=== PATIENT | female | born 1970 | race African-American/Black ===

== ENCOUNTER 2019-08-10 13:29 | Emergency (ER) | payer OTHER ==
[2019-08-10 14:50] LABS: Urine Blood NEGATIVE (NEG); Urine Glucose NEGATIVE (NEG); Urine Protein NEGATIVE (NEG); Urine Specific Gravity 1.025 (1.005-1.030)
--- NOTE | 2019-08-10 15:13 | RAD REPORT ---
EXAM DESCRIPTION: CT - Abdomen Pelvis Wo Contrast - 08/10/2019 3:01 pm CLINICAL HISTORY: Abdominal pain COMPARISON: None TECHNIQUE: Computed axial tomography of the abdomen and pelvis was obtained. IV and oral contrast we re not requested. All CT scans are performed using dose optimization technique as appropriate and may include automated exposure control or mA/KV adjustment according to patient size. FINDINGS: The evaluation of solid organs, vessels and bowel is limited secondary to the lack of con trast administration. The liver, spleen, pancreas, adrenals and kidneys appear grossly normal. Hysterectomy. 4.2 centimeter cystic structure right adnexal. No significant free fluid. No diverticulitis Air within the vagina IMPRESSION: A 4.2 centimeters cystic structure right adnexa probably an ovarian cyst. No significant free fluid Follow up pelvic ultrasound in 6 weeks recommended to assess stability/resolution. Air within the vagina often is insignificant. It can be associated with infection and fistula and fina uld be correlated clinically
[2019-08-10] MEDS ORDERED: FENTANYL CITR 100 MCG/2 ML ONE (15:41)
[2019-08-10] MEDS ORDERED: ONDANSETRON 4 MG/2 ML VIAL ONE (15:46)
[2019-08-10 15:58] LABS: Absolute Lymphocytes (CBC) 1.7 K/uL (0.7-4.9); Basophils % 0.8 % (0-1.3); Hematocrit 41.7 % (36.0-45.0); Lymphocytes % 27.3 % (15.3-44.8); RBC Red Blood Cell Count 5.06 M/uL (3.86-4.86)
[2019-08-10 16:33] LABS: ALT/SGPT 23 U/L (12-78); AST/SGOT 19 U/L (15-37); Albumin 3.3 g/dL (3.4-5.0); Alkaline Phosphatase 50 U/L (45-117); BUN Blood Urea Nitrogen 11 mg/dL (7-18); Bicarbonate 27 mmol/L (21-32); Bilirubin Direct < 0.1 mg/dL (0-0.2); Bilirubin Total 0.2 mg/dL (0.2-1.0); Glucose Level 96 mg/dL (74-106); Potassium 3.7 mmol/L (3.5-5.1); Protein, Total 7.6 g/dL (6.4-8.2); Sodium Level 140 mmol/L (136-145)
--- NOTE | 2019-08-10 18:12 | EDPHYS ---
Physician Documentation [facility] Name: Sunny Young Age: 48 yrs Sex: Female : 1970 Arrival Date: 08/10/2019 Time: 13:32 Bed 24 Private MD: ED Physician Kevin Venegas HPI: 08/09 16:55 This 48 yrs old Black Female presents to ER via Ambulatory with complaints of Abdominal kdr Pain. 16:55 The patient presents with abdominal pain in the lower abdomen. Onset: The kdr symptoms/episode began/occurred gradually, 3 day(s) ago. The symptoms do not radiate. Associated signs and symptoms: Pertinent positives: nausea, Pertinent negatives: anorexia, blood in stools, chest pain, constipation, diarrhea, dysuria, fever, headache, hematuria, palpitations, shortness of breath, vaginal discharge, vomiting, vomiting blood. The symptoms are described as achy, crampy, steady, vague. Modifying factors: The symptoms are alleviated by nothing, the symptoms are aggravated by movement, touching the area, Bending forward and putting pressure on her low abdomen. Severity of pain: At its worst the pain was mild moderate just prior to arrival, in the emergency department the pain is unchanged. The patient has not experienced similar symptoms in the past. The patient has not recently seen a physician. 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 - Social history:: Smoking status: Patient denies any tobacco usage or history of. ROS: 18:26 Constitutional: Negative for fever, chills, and weight loss, Eyes: Negative for injury, kdr pain, redness, and discharge, ENT: Negative for injury, pain, and discharge, Neck: Negative for injury, pain, and swelling, Cardiovascular: Negative for chest pain, palpitations, and edema, Respiratory: Negative for shortness of breath, cough, wheezing, and pleuritic chest pain, Back: Negative for injury and pain, : Negative for injury, bleeding, discharge, and swelling, MS/Extremity: Negative for injury and deformity, Skin: Negative for injury, rash, and discoloration, Neuro: Negative for headache, weakness, numbness, tingling, and seizure activity. Psych: Negative for depression, anxiety, suicide ideation, homicidal ideation, and hallucinations, Allergy/Immunology: Negative for hives, rash, and allergies, Endocrine: Negative for neck swelling, polydipsia, polyuria, polyphagia, and marked weight changes, Hematologic/Lymphatic: Negative for swollen nodes, abnormal bleeding, and unusual bruising. 18:26 Abdomen/GI: Positive for abdominal pain, nausea, Negative for constipation, abdominal cramps, abdominal distension, anorexia, black/tarry stool, rectal pain, rectal bleeding, bowel incontinence. Exam: 18:26 Constitutional: This is a well developed, well nourished patient who is awake, alert, kdr and in no acute distress. Head/Face: Normocephalic, atraumatic. Eyes: Pupils equal round and reactive to light, extra-ocular motions intact. Lids and lashes normal. Conjunctiva and sclera are non-icteric and not injected. Cornea within normal limits. Periorbital areas with no swelling, redness, or edema. Neck: Trachea midline, no thyromegaly or masses palpated, and no cervical lymphadenopathy. Supple, full range of motion without nuchal rigidity, or vertebral point tenderness. No Meningismus. Chest/axilla: Normal chest wall appearance and motion. Nontender with no deformity. No lesions are appreciated. Cardiovascular: Regular rate and rhythm with a normal S1 and S2. No gallops, murmurs, or rubs. Normal PMI, no JVD. No pulse deficits. Respiratory: Lungs have equal breath sounds bilaterally, clear to auscultation and percussion. No rales, rhonchi or wheezes noted. No increased work of breathing, no retractions or nasal flaring. Back: No spinal tenderness. No costovertebral tenderness. Full range of motion. Skin: Warm, dry with normal turgor. Normal color with no rashes, no lesions, and no evidence of cellulitis. MS/ Extremity: Pulses equal, no cyanosis. Neurovascular intact. Full, normal range of motion. Neuro: Awake and alert, GCS 15, oriented to person, place, time, and situation. Cranial nerves II-XII grossly intact. Motor strength 5/5 in all extremities. Sensory grossly intact. Cerebellar exam normal. Normal gait. Psych: Awake, alert, with orientation to person, place and time. Behavior, mood, and affect are within normal limits. 18:26 Abdomen/GI: Inspection: abdomen appears normal, Bowel sounds: normal, Palpation: soft, mild abdominal tenderness, in the suprapubic area. Vital Signs: 13:36 BP 142 / 85; Pulse 84; Resp 16 S; Temp 97.7(O); Pulse Ox 100% on R/A; Weight 95.25 kg; jl7 Height 5 ft. 8 in. (172.72 cm); Pain 7/10; 17:00 BP 133 / 80; Pulse 79; Resp 16; Pulse Ox 99% on R/A; Pain 5/10; ls4 18:10 BP 132 / 80; Pulse 78; Resp 14; Temp 97.4(O); Pulse Ox 100% on R/A; Pain 3/10; ls4 13:36 Body Mass Index 31.93 (95.25 kg, 172.72 cm) jl7 MDM: 18:11 Patient medically screened. kdr 18:26 Data reviewed: vital signs, nurses notes. Counseling: I had a detailed discussion with kdr the patient and/or guardian regarding: the historical points, exam findings, and any diagnostic results supporting the discharge/admit diagnosis, lab results, radiology results. ED course: The patient was stable in the ED and happy with the care provided and the plan for discharge and follow-up. 08/09 14:15 Order name: Urine Dipstick--Ancillary (enter results); Complete Time: 15:49 tt3 08/09 14:30 Order name: Basic Metabolic Panel; Complete Time: 16:51 kdr 08/09 14:30 Order name: CBC with Diff; Complete Time: 16:51 kdr 08/09 14:30 Order name: Hepatic Function; Complete Time: 16:51 kdr 08/09 14:30 Order name: CT Abd/Pelvis - Without Contrast; Complete Time: 15:49 kdr 08/09 14:30 Order name: IV Saline Lock; Complete Time: 15:23 kdr 08/09 14:30 Order name: Labs collected and sent; Complete Time: 15:23 kdr 08/09 14:30 Order name: Urine Dipstick-Ancillary (obtain specimen); Complete Time: 15:23 kdr 08/09 15:28 Order name: Labs - recollect needed: recollect light green and lavender tubes.; tt3 Complete Time: 16:16 Administered Medications: 15:36 Drug: fentaNYL (PF) 50 mcg Route: IVP; Site: right antecubital; ls4 16:16 Follow up: Response: No adverse reaction; Marked relief of symptoms ls4 15:37 Drug: Zofran (Ondansetron) 4 mg Route: IVP; Site: right antecubital; ls4 16:16 Follow up: Response: No adverse reaction; Marked relief of symptoms ls4 Disposition: 08/10/19 18:11 Discharged to Home. Impression: Abdominal and pelvic pain. - Condition is Stable. - Discharge Instructions: Abdominal Pain, Adult, [id number]. - Prescriptions for Bentyl 20 mg Oral Tablet - take 1 tablet by ORAL route every 6 hours As needed; 20 tablet. Zofran 4 mg Oral Tablet - take 1 tablet by ORAL route every 4-6 hours As needed; 12 tablet. Diclofenac Sodium 75 mg Oral Tablet, Delayed Release (E.C.) - take 1 tablet by ORAL route 2 times per day; 20 tablet. - Medication Reconciliation Form, Thank You Letter form. - Follow up: Private Physician; When: 2 - 3 days; Reason: If symptoms return, Further diagnostic work-up, Recheck today's complaints, Continuance of care, Re-evaluation by your physician. - Problem is new. - Symptoms have improved. Signatures: Dispatcher [employer] EDMS Kevin Venegas MD MD kdr Leal, Jahala, RN RN jl7 Yesi Augustin RN RN ls4 Jesus Mcdonough tt3 Corrections: (The following items were deleted from the chart) 18:48 18:11 08/10/2019 18:11 Discharged to Home. Impression: Abdominal and pelvic pain. ls4 Condition is Stable. Forms are Medication Reconciliation Form, Thank You Letter, Antibiotic Education, Prescription Opioid Use. Follow up: Private Physician; When: 2 - 3 days; Reason: If symptoms return, Further diagnostic work-up, Recheck today's complaints, Continuance of care, Re-evaluation by your physician. Problem is new. Symptoms have improved. kdr
--- NOTE | 2019-08-10 18:12 | ER ---
Nurse's Notes [facility] Name: Sunny Young Age: 48 yrs Sex: Female : 1970 Arrival Date: 08/10/2019 Time: 13:32 Bed 24 Private MD: Diagnosis: Abdominal and pelvic pain Presentation: 08/09 13:36 Chief complaint: Patient states: Suprapubic abdominal pain, radiates to umbilical area, jl7 x 3 days, denies urinary symptoms, denies N/V/D/C. Coronavirus screen: Surgical mask placed on patient. Patient moved to private room, placed in contact and droplet isolation with eye protection until further assessment. Patient denies a cough. Patient denies shortness of breath or difficulty breathing. Patient denies measured and/or subjective temperature greater than 100.4F prior to today's visit. Patient denies travel on a cruise ship or to a country the [facility] currently lists as an affected area. Patient denies contact with known and/or suspected case of COVID-19. Ebola Screen: No symptoms or risks identified at this time. Initial Sepsis Screen: Does the patient meet any 2 criteria? No. Patient's initial sepsis screen is negative. Does the patient have a suspected source of infection? No. Patient's initial sepsis screen is negative. Risk Assessment: Do you want to hurt yourself or someone else? Patient reports no desire to harm self or others. Onset of symptoms was August 08, 2019. Care prior to arrival: None. 13:36 Method Of Arrival: Ambulatory jl7 13:36 Acuity: SALOME 3 jl7 Triage Assessment: 13:41 General: Appears in no apparent distress. uncomfortable, Behavior is calm, cooperative, jl7 appropriate for age. Pain: Complains of pain in suprapubic area Pain radiates to umbilical area Pain currently is 7 out of 10 on a pain scale. at worst was 10 out of 10 on a pain scale. Quality of pain is described as sharp, Pain began 2-3 days ago. Is continuous. Neuro: Level of Consciousness is awake, alert, obeys commands, Oriented to person, place, time, situation. Cardiovascular: Patient's skin is warm and dry. Respiratory: Airway is patent Respiratory effort is even, unlabored, Respiratory pattern is regular, symmetrical. GI: Abdomen is round non-distended, Patient currently denies constipation, diarrhea, nausea, vomiting. : Denies burning with urination. Derm: Skin is dry, Skin is normal, Skin temperature is warm. ADMISSIONS CONSULTANT: 13:41 LMP N/A - Hysterectomy jl7 Historical: - Allergies: 13:41 Iodine; jl7 13:41 Morphine; jl7 13:41 tramadol; jl7 13:41 gabapentin; jl7 13:41 Flexeril; jl7 - Home Meds: 13:41 None [Active]; jl7 - PMHx: 13:41 Umbilical hernia; IBS; Fibromyalgia; jl7 - PSHx: 13:41 ; Tubal ligation; Hysterectomy; jl7 - Immunization history:: Adult Immunizations up to date. - Social history:: Smoking status: Patient denies any tobacco usage or history of. Screenin:00 Abuse screen: Denies threats or abuse. Denies injuries from another. Nutritional ls4 screening: No deficits noted. Tuberculosis screening: No symptoms or risk factors identified. Fall Risk None identified. Assessment: 14:10 General: Appears in no apparent distress. uncomfortable, Behavior is calm, cooperative. ls4 14:10 Neuro: No deficits noted. Cardiovascular: No deficits noted. Respiratory: No deficits ls4 noted. GI: Bowel sounds present X 4 quads. Abd is soft and non tender X 4 quads. Reports lower abdominal pain, normal bowel habits, tolerance of fluids, tolerance of food. : No deficits noted. No signs and/or symptoms were reported regarding the genitourinary system. EENT: No deficits noted. No signs and/or symptoms were reported regarding the EENT system. Derm: Skin is intact, is healthy with good turgor, Skin is dry, Skin is normal. Musculoskeletal: No deficits noted. No signs and/or symptoms reported regarding the musculoskeletal system. 15:30 Reassessment: Patient appears in no apparent distress at this time. Patient and/or ls4 family updated on plan of care and expected duration. Pain level reassessed. Patient is alert, oriented x 3, equal unlabored respirations, skin warm/dry/pink. 16:30 Reassessment: Patient appears in no apparent distress at this time. Patient and/or ls4 family updated on plan of care and expected duration. Pain level reassessed. Patient is alert, oriented x 3, equal unlabored respirations, skin warm/dry/pink. 17:30 Reassessment: Patient appears in no apparent distress at this time. Patient and/or ls4 family updated on plan of care and expected duration. Pain level reassessed. Patient is alert, oriented x 3, equal unlabored respirations, skin warm/dry/pink. 18:10 Reassessment: Patient appears in no apparent distress at this time. Patient and/or ls4 family updated on plan of care and expected duration. Pain level reassessed. Patient is alert, oriented x 3, equal unlabored respirations, skin warm/dry/pink. Patient denies pain at this time. Patient states feeling better. Vital Signs: 13:36 BP 142 / 85; Pulse 84; Resp 16 S; Temp 97.7(O); Pulse Ox 100% on R/A; Weight 95.25 kg; jl7 Height 5 ft. 8 in. (172.72 cm); Pain 7/10; 17:00 BP 133 / 80; Pulse 79; Resp 16; Pulse Ox 99% on R/A; Pain 5/10; ls4 18:10 BP 132 / 80; Pulse 78; Resp 14; Temp 97.4(O); Pulse Ox 100% on R/A; Pain 3/10; ls4 13:36 Body Mass Index 31.93 (95.25 kg, 172.72 cm) jl7 ED Course: 13:32 Patient arrived in ED. ag5 13:36 Kevin Venegas MD is Attending Physician. kdr 13:40 Triage completed. jl7 13:41 Arm band placed on right wrist. jl7 14:00 Patient has correct armband on for positive identification. farmworker poultry on. Pulse ls4 ox on. NIBP on. Warm blanket given. Verbal reassurance given. Diet: Patient is NPO. 14:00 No provider procedures requiring assistance completed. ls4 14:02 Yesi Augustin, RN is Primary Nurse. ls4 15:03 CT Abd/Pelvis - Without Contrast In Process Unspecified. EDMS 15:10 Inserted saline lock: 18 gauge in right antecubital area, using aseptic technique. ls4 18:42 Patient maintains SpO2 saturation greater than 95% on room air. ls4 18:42 IV discontinued, intact, bleeding controlled, No redness/swelling at site. Pressure ls4 dressing applied. 22:47 No apparent distress. ls4 Administered Medications: 15:36 Drug: fentaNYL (PF) 50 mcg Route: IVP; Site: right antecubital; ls4 16:16 Follow up: Response: No adverse reaction; Marked relief of symptoms ls4 15:37 Drug: Zofran (Ondansetron) 4 mg Route: IVP; Site: right antecubital; ls4 16:16 Follow up: Response: No adverse reaction; Marked relief of symptoms ls4 Outcome: 18:11 Discharge ordered by . kdr 18:45 Discharged to home ambulatory, with family. ls4 18:45 Condition: stable 18:45 Discharge instructions given to patient, Instructed on discharge instructions, follow up and referral plans. medication usage, safety practices, Demonstrated understanding of instructions, follow-up care, medications, Prescriptions given X 2. 18:48 Patient left the ED. ls4 Signatures: Dispatcher [employer] EDMS Kevin Venegas MD MD kdr Leal, Jahala, RN RN jl7 Yesi Augustin RN RN ls4 Tamiko Parekh 5 Corrections: (The following items were deleted from the chart) 22:47 22:46 Inserted saline lock: 18 gauge in right antecubital area, using aseptic ls4 technique. ls4 22:50 18:10 Reassessment: Patient appears in no apparent distress at this time. Patient ls4 and/or family updated on plan of care and expected duration. Pain level reassessed. Patient is alert, oriented x 3, equal unlabored respirations, skin warm/dry/pink. ls4 22:51 22:47 Patient maintains SpO2 saturation greater than 95% on room air. ls4 ls4
[2019-08-10 19:04] VITALS: BP 142/85; TEMP 97.7; O2SAT 100
== END 2019-08-10 18:48 | disposition home or self-care (01) ==
LOC: ER 13:29
DX: R10.2 Pelvic and perineal pain (principal); Z91.09 Other allergy status, other than to drugs and biological substances; Z88.6 Allergy status to analgesic agent; Z88.8 Allergy status to other drugs, medicaments and biological substances
CPT/HCPCS: 85025; 80048; 36415; 80076; 81003; 74176; 96375; 96374; 99285; J3010; J2405